=== PATIENT | female | born 1985 | race Caucasian/White ===

== ENCOUNTER 2021-12-13 15:15 | Outpatient (CLI) | payer BC ==
[2021-12-13] MEDS: LACTATED RINGERS 1,000 ML IV SCH ×2 (15:49→16:32)
[2021-12-13 16:09] LABS: Appearance,Urine Clear (Clear); Bacteria,Urine Rare /hpf; Bilirubin,Urine Negative (Negative); Blood,Urine Negative (Negative); Color,Urine Light Yellow; Glucose,Urine (UA) Negative (Negative); Ketones,Urine Negative (Negative); Leukocyte Esterase,Urine Small (Negative); Mucus,Urine Rare /hpf; Nitrite,Urine Negative (Negative); PH, Urine 6.5 (5.0-8.0); Protein,Urine Negative (Negative); RBC,Urine <1 /hpf (0-5); Specific Gravity,Urine 1.011 (1.001-1.035); Squamous Epithelial Cell,Urine 1 /hpf (0-4); Urobilinogen,Urine <2.0 mg/dL (<2.0); WBC,Urine 1 /hpf (0-5)
[2021-12-13 17:30] VITALS: BP 122/67; PULSE 82; RESP 18; TEMP 97.7
--- NOTE | 2022-02-14 21:49 | P.MSEPDOC ---
Presenting Problems - Arrival Data Date of Arrival on Unit: 12/13/21 Time of Arrival on Unit: 15:20 Mode of Transport: Wheelchair - Complaint OB-Reason for Admission/Chief Complaint: Possible Onset of Labor Comment: contractions x1 week, increasing in severity today Medical History - Information : 3 Para: 2 Number of Living Children: 2 - Gestational Age Gestational Age by JG (wks/days): 37 Weeks and 1 Days - History Comment: hx vag delivery x2, both induced Review of Systems - Review of Systems Constitutional: No problems Breast: No problems ENT: No problems Cardiovascular: No problems Respiratory: No problems Gastrointestinal: No problems Genitourinary: No problems Musculoskeletal: No problems Neurological: No problems Skin: No problems Vital Signs - Temperature Temperature: 97.7 F Temperature Source: Temporal Artery Scan - Pulse Right Sitting Brachial Pulse Rate: 82 Pulse Assessment Method: Automatic Cuff - Respirations Respiratory Rate: 18 Oxygen Delivery Method: Room Air O2 Sat by Pulse Oximetry: 98 - Blood Pressure Right Arm Sitting Blood Pressure: 122/67 Blood Pressure Mean: 85 Blood Pressure Source: Automatic Cuff Medical Screen Scoring - Cervical Exam Dilation (cm): 1 Effacement (%): 50 Station: -3 Membranes: Intact - Assessment - Baby A Baseline FHR: 120 Heart Rate - NICHD Category: Category I (Normal) NST: Reactive Physician Notification - Physician Notified Physician Notified Date: 12/13/21 Physician Notified Time: 16:15 Physician: Vickie Leigh New Order Received: Yes - Notification Comment Comment: dc home. Pt to return with continued or increased labor symptoms. Maternal Triage Index - Prompt/Priority 3 Prompt Priority 3: Yes Criteria Met for Priority 3: contractions, no cervical change after 2 hours, reactive NST, + movement Disposition - Disposition OB Disposition: Discharge to home Discharge Date: 12/13/21 Discharge Time: 17:29 I agree with the RN Medical Screening Exam: Yes Case reviewed; plan agreed upon as documented in EMR&OBIX.: Yes Diagnosis: FALSE LABOR AT OR AFTER 37 COMPLETED WEEKS OF GESTATION
== END 2021-12-13 17:30 | disposition home or self-care (01) ==
LOC: FBPOP 15:15
PROVIDERS: ATTEND Obstetrics & Gynecology Obstetrics
DX: O47.1 False labor at or after 37 completed weeks of gestation (principal); Z3A.37 37 weeks gestation of pregnancy; Z91.018 Allergy to other foods; Z88.6 Allergy status to analgesic agent
CPT/HCPCS: 59025; 81001; 96360; 96361; 99213; 99214

== ENCOUNTER → 2021-12-30 | Outpatient (CLI) | payer BC ==
[2021-12-30 06:53] VITALS: BP 130/76; PULSE 69; RESP 18; TEMP 97.7
--- NOTE | 2022-01-05 07:03 | P.MSEPDOC ---
Presenting Problems - Arrival Data Date of Arrival on Unit: 12/30/21 Time of Arrival on Unit: 05:28 Mode of Transport: Ambulatory - Complaint OB-Reason for Admission/Chief Complaint: Possible Onset of Labor Medical History - Information : 3 Para: 2 Term: 2 : 0 Abortions: Spontaneous or Elective: 0 Number of Living Children: 2 - Gestational Age Gestational Age by JG (wks/days): 39 Weeks and 5 Days Review of Systems - Review of Systems Constitutional: No problems Breast: No problems ENT: No problems Cardiovascular: No problems Respiratory: No problems Gastrointestinal: No problems Genitourinary: No problems Musculoskeletal: No problems Neurological: No problems Skin: No problems Vital Signs - Temperature Temperature: 97.7 F Temperature Source: Oral - Pulse Right Pulse Rate: 69 - Respirations Respiratory Rate: 18 Oxygen Delivery Method: Room Air O2 Sat by Pulse Oximetry: 97 - Blood Pressure Right Arm Blood Pressure: 130/76 Blood Pressure Mean: 94 Blood Pressure Source: Automatic Cuff Medical Screen Scoring - Cervical Exam Dilation (cm): 2 Effacement (%): 50 Station: -3 Membranes: Intact - Uterine Contractions Frequency From (mins): 2 Frequency To (mins): 3 Duration From (seconds): 60 Duration To (seconds): 110 Intensity: Strong Resting: Soft to palpation - Assessment - Baby A Baseline FHR: 125 Heart Rate - NICHD Category: Category II (Indeterminate) NST: Reactive Physician Notification - Physician Notified Physician Notified Date: 12/30/21 Physician Notified Time: 06:42 Physician: Edel Villar - Notification Comment Comment: Dr. Villar notified of pt's arrival to triage. RN reported on maternal and status, maternal VS, SVE x2, and FHTs. Pt okay to D/C home at this. time with education to come back when needed. Maternal Triage Index - Maternal Triage Index Presenting for scheduled procedure w/no complaint: No - Stat/Priority 1 Stat Priority 1: No - Urgent/Priority 2 Urgent Priority 2: No - Prompt/Priority 3 Prompt Priority 3: No - Non-Urgent/Priority 4 Non-Urgent Priority 4: Yes Criteria Met for Priority 4: JG 01/02/22 at 39.4 weeks of gestation, here with c/o UC's x 2.5 hours. Disposition - Disposition OB Disposition: Discharge to home Discharge Date: 12/30/21 Discharge Time: 06:55 I agree with the RN Medical Screening Exam: No Physician's MSE Comment: RN reported category one heart tones in report to me. Case reviewed; plan agreed upon as documented in EMR&OBIX.: No Diagnosis: rule out labor
== END ==
LOC: FBPOP 05:28
PROVIDERS: ATTEND Obstetrics & Gynecology
DX: Z03.79 Encounter for other suspected maternal and fetal conditions ruled out (principal); Z91.018 Allergy to other foods; Z88.6 Allergy status to analgesic agent
CPT/HCPCS: 59025; 99213

== ENCOUNTER 2022-01-02 06:00 | Inpatient (IN) | payer BC ==
[2022-01-02] MEDS ORDERED: LIDOCAINE 1% (PF) 10 MG/ML (30 ML SDV) SQ PRN (06:50)
[2022-01-02] MEDS ORDERED: OXYTOCIN 10 UNIT/ML 1 ML VIAL IM PRN (06:50)
[2022-01-02] MEDS ORDERED: TERBUTALINE 1 MG/ML VIAL SQ PRN (06:50)
[2022-01-02] MEDS ORDERED: METHYLERGONOVINE 0.2 MG/ML 1 ML AMP IM PRN (06:50)
[2022-01-02] MEDS ORDERED: CARBOPROST TROMETHAMINE 250 MCG/ML 1 ML AMP IM PRN (06:50)
[2022-01-02] MEDS ORDERED: OXYTOCIN 30 UNITS/500 ML NS 30 UNIT in SALINE 1 500ML.BAG IV SCH ×2 (07:00→17:45)
[2022-01-02 07:05] VITALS: RESP 16
[2022-01-02] MEDS: LACTATED RINGERS 1,000 ML IV SCH ×3 (07:30→12:26)
[2022-01-02 07:45] LABS: Basophils # (A) 0.1 k/uL (0-0.2); Basophils % (A) 0 %; Eosinophils # (A) 0.5 k/uL (0-0.7); Eosinophils % (A) 3 %; HCT 34.5 % (34.0-46.0); HGB 11.4 gm/dL (11.4-16.0); Lymphocytes # (A) 3.4 k/uL (1.0-4.8); Lymphocytes % (A) 23 %; MCH 32.1 pg (25.0-35.0); MCHC 33.2 g/dL (31.0-37.0); MCV 96.8 fL (80.0-100.0); Monocytes # (A) 0.5 k/uL (0-1.0); Monocytes % (A) 4 %; Neutrophils # (A) 10.3 k/uL (1.3-7.7); Neutrophils % (A) 69 %; Platelet Count 353 k/uL (150-450); RBC 3.56 m/uL (3.80-5.40); RDW 12.5 % (11.5-15.5); WBC 14.9 k/uL (3.8-10.6)
[2022-01-02] MEDS ORDERED: BUTORPHANOL 1 MG/ML 1 ML VIAL IV PRN (08:21)
--- NOTE | 2022-01-02 08:26 | P.HPOB ---
History of Present Illness H&P Date: 01/02/22 Chief Complaint: 40-0/7 weeks, induction of labor The patient is a 36-year-old 3 para 2 scissors or 2 admitted at 40-0/7 weeks as established by last menstrual period and confirmed by 9 week ultrasound. She is admitted for induction of labor with all signs reassuring and with a favorable cervix. Her has been uncomplicated. She does fall into the category of advanced maternal age and declined trisomy testing. She also does express a desire for tubal ligation which will likely be carried out at the 6 week amrita. She was a smoker but has reportedly quit during the . On labor and delivery, there is a category 1 h eart rate tracing. Group B strep status is negative. Obstetrical history: 3 para 2001 with 2 term vaginal deliveries without complications. Current statistics are listed in history of present illness. EDC of 01/02/2022 was established by last menstrual period and confirmed by 9 week ultrasound. Laboratory workup demonstrates a blood type of O+ with a negative antibody screen. Rubella status is immune. The remainder of the laboratory workup was within normal limits. One hour Glucola was normal and group B strep status is negative. Gynecologic history: Unremarkable with no history of any infections to include STDs. Review of Systems Review of systems is confined to history of present illness. Past Medical History Past Medical History: No Reported History History of Any Multi-Drug Resistant Organisms: None Reported, MRSA Date of last positivie culture/infection: 07/08/08 MDRO Source:: Unknown Past Surgical History: Appendectomy Additional Past Surgical History / Comment(s): mole removal from (R) leg Past Anesthesia/Blood Transfusion Reactions: No Reported Reaction Past Psychological History: Anxiety, Depression Additional Psychological History / Comment(s): Hx depression. Smoking Status: Never smoker Past Alcohol Use History: None Reported Past Drug Use History: None Reported - Past Family History Father Family Medical History: Hypertension Medications and Allergies Home Medications Medication Instructions Recorded Confirmed Type Vit No.124/Iron/Folic 1 each PO DAILY 07/07/15 01/02/22 History [ Vitamin Tablet] Cetirizine HCl [Zyrtec] 10 mg PO DAILY 12/13/21 01/02/22 History FLUoxetine HCL 40 mg PO DAILY 12/13/21 01/02/22 History Montelukast [Singulair] 1 tab PO DAILY 12/30/21 01/02/22 History Allergies Allergy/AdvReac Type Severity Reaction Status Date / Time banana Allergy Rash/Hives Verified 01/02/22 06:48 peas Allergy Rash/Hives Verified 01/02/22 06:48 tomato Allergy Rash/Hives Verified 01/02/22 06:48 Exam Vital Signs Temp Pulse Resp BP Pulse Ox 01/02/22 06:47 97.7 F 73 16 128/59 98 Intake and Output 01/01/22 01/02/22 01/02/22 22:59 06:59 14:59 Other: Weight 81.647 kg In general, this is a well-developed, well-nourished white female in no acute distress. Her heart has a regular rhythm and rate without murmur. Her lungs clear to auscultation bilaterally in all holcomb. Her abdomen is gravid, nondis tended, has normal active bowel sounds, soft, nontender, and without any palpable masses aside from uterine fundus. Her extremities without any cyanosis, clubbing, or edema and are nontender to palpation bilaterally. Digital cervical examination and straight surgery 3 cm dilated, 50% effaced, the vertex in presentation at -2-3 station. Artificial rupture of membranes is carried out demonstrating lightly meconium-stained fluid. Results Result Diagrams: 01/02/22 06:50 Abnormal Lab Results - Last 24 Hours (Table) 01/02/22 Range/Units 06:50 WBC 14.9 H (3.8-10.6) k/uL RBC 3.56 L (3.80-5.40) m/uL Neutrophils # 10.3 H (1.3-7.7) k/uL Assessment and Plan (1) Term Current Visit: No Status: Acute Code(s): Z34.80 - ENCOUNTER FOR SUPRVSN OF NORMAL , UNSP TRIMESTER SNOMED Code(s): 82065714 Plan: The patient has been admitted for Pitocin augmentation which has been started. She also underwent artificial rupture of membranes. She will have close maternal and surveillance and expectant management will be practiced. She is a good candidate for either IV or epidural analgesia, whichever she may choose.
[2022-01-02] MEDS ORDERED: SODIUM CHLORIDE 0.9% 100 ML BAG ONE (11:20)
[2022-01-02] MEDS ORDERED: fentaNYL (PF) 50 MCG/ML 5 ML AMP ONE (11:20)
[2022-01-02] MEDS ORDERED: ROPIVACAINE 5MG/ML 20ML VIAL ONE (11:20)
[2022-01-02] MEDS ORDERED: HYDROcodone/APAP 5-325MG 1 EACH TAB PO PRN (17:38)
[2022-01-02] MEDS ORDERED: HYDROcodone/APAP 7.5-325MG 1 EACH TAB PO PRN (17:38)
[2022-01-02] MEDS ORDERED: LANOLIN CREAM 5 GM TUBE TOPICAL PRN (17:38)
[2022-01-02] MEDS ORDERED: diphenhydrAMINE 50 MG CAP PO PRN (17:38)
[2022-01-02] MEDS ORDERED: SIMETHICONE 80 MG CHEWABLE PO PRN (17:38)
[2022-01-02] MEDS ORDERED: diphenhydrAMINE 50 MG/ML 1 ML VIAL IVP PRN ×2 (17:38)
[2022-01-02] MEDS ORDERED: BENZOCAINE/MENTHOL SPRAY 1 GM/SPRAY AEROSOL TOPICAL PRN (17:38)
[2022-01-02] MEDS ORDERED: IBUPROFEN 600 MG TAB PO PRN (17:38)
[2022-01-02] MEDS ORDERED: diphenhydrAMINE 25 MG CAP PO PRN (17:38)
[2022-01-02] MEDS ORDERED: ZOLPIDEM 5 MG TAB PO PRN (17:38)
[2022-01-02] MEDS ORDERED: HYDROCORTISONE 2.5% RECTAL CREAM 30 GM TUBE RECTAL PRN (17:38)
--- NOTE | 2022-01-02 17:42 | P.PROBDLV ---
Vaginal Delivery Note - . Vaginal Delivery Note: The patient is a 36-year-old 3 para 2001 admitted at 40-0/7 weeks by good dating parameters. She is admitted for induction of labor with all signs reassuring, category 1 heart rate tracing. Her has been uncomplicated though she did fall into the category of advanced maternal age and declined trisomy testing. Group B strep status was negative. On labor and delivery, Pitocin was started and she underwent artificial rupture of membranes for lightly meconium-stained fluid. She made progress to the active phase of labor and had an epidural catheter placed for analgesia. She then made steady progress through the active phase of labor and ultimately reached complete. She pushed over the course of the next 4 contractions to a normal spontaneous vaginal delivery of a viable 7 lbs. 2 oz. baby boy with Apgars of 6 at 1 minute and 8 at 5 minutes and 9 at 10 minutes. There was a nuchal cord times to which was reduced following delivery of the . The placenta was delivered spontaneously, intact, and grossly normal with a grossly normal, centrally inserted three-vessel cord. There were no lacerations of the perineum, vagina, or cervix. Estimated blood loss for the case is approximately 100 mL. There were no complications. All sponge, instrument, and needle counts were correct. Both mother and infant are resting comfortably in recovery.
[2022-01-02] MEDS: ACETAMINOPHEN TAB 325 MG TAB PO PRN (19:03)
[2022-01-02] MEDS: SENNOSIDES-DOCUSATE SODIUM 1 EACH TAB PO SCH (22:41)
[2022-01-03] MEDS: ACETAMINOPHEN TAB 325 MG TAB PO PRN ×3 (00:17→13:47)
[2022-01-03 07:28] LABS: Basophils % (A) 0 %; Eosinophils # (A) 0.2 k/uL (0-0.7); Eosinophils % (A) 1 %; HCT 32.7 % (34.0-46.0); HGB 10.5 gm/dL (11.4-16.0); Lymphocytes # (A) 2.2 k/uL (1.0-4.8); Lymphocytes % (A) 12 %; MCH 31.4 pg (25.0-35.0); MCHC 32.2 g/dL (31.0-37.0); MCV 97.4 fL (80.0-100.0); Mean Platelet Volume 8.1; Monocytes # (A) 0.5 k/uL (0-1.0); Monocytes % (A) 3 %; Neutrophils # (A) 14.9 k/uL (1.3-7.7); Neutrophils % (A) 83 %; Platelet Count 313 k/uL (150-450); RBC 3.35 m/uL (3.80-5.40); RDW 12.4 % (11.5-15.5); WBC 17.8 k/uL (3.8-10.6)
[2022-01-03] MEDS: SENNOSIDES-DOCUSATE SODIUM 1 EACH TAB PO SCH (07:39)
--- NOTE | 2022-01-03 08:51 | P.DS ---
Providers Date of admission: 01/02/22 06:34 Expected date of discharge: 01/03/22 Attending physician: Cong Dickey Primary care physician: Stated None - Discharge Diagnosis(es) (1) Term Current Visit: Yes Status: Acute (2) Normal spontaneous vaginal delivery Current Visit: Yes Status: Acute Hospital Course: The patient is a 36-year-old 3 para 2001 admitted at 40-0/7 weeks by good dating parameters perches admitted for induction with able cervix. Her was uncomplicated. She did fall into the category of advanced maternal age and declined trisomy testing. On labor and delivery, there was a category 1 heart rate tracing [place] Pitocin started and underwent artificial rupture of membranes for lightly meconium-stained fluid. She had an upper catheter placed her on the onset of the active phase of labor. She made steady progress throughout the day to complete and then pushed fairly quickly to a normal spontaneous vaginal delivery of a viable 7 lbs. 2 oz. baby boy with Apgars of 6 at 1 minute 8 at 5 minutes and 9 at 10 minutes. Her course was unremarkable vital signs being stable and her temperature was afebrile throughout. She was deemed stable for discharge on day #1 was discharged home to follow-up in the office in 6 weeks' time routinely. Discharge instructions included calling for any significantly increased bleeding or foul-smelling lochia, significantly increased fever or abdominal pain, perineal complaints, breast complaints, or anything else that concerned her. She was additionally instructed to have nothing in the vagina for at least 6 weeks time to include intercourse. She does intend to have a tubal ligation and will likely return to the office at 5-6 weeks to schedule the procedure. Maternal blood type is O+ and rubella status is immune. Procedures: #1. Pitocin induction #2. Epidural analgesia #3. Normal spontaneous vaginal delivery Patient Condition at Discharge: Stable Plan - Discharge Summary Discharge Rx Participant: No New Discharge Prescriptions: No Action Vit No.124/Iron/Folic [ Vitamin Tablet] 1 each PO DAILY FLUoxetine HCL 40 mg PO DAILY Montelukast [Singulair] 1 tab PO DAILY Cetirizine HCl [Zyrtec] 10 mg PO DAILY Discharge Medication List Vit No.124/Iron/Folic [ Vitamin Tablet] 1 each PO DAILY 07/07/15 [History] Cetirizine HCl [Zyrtec] 10 mg PO DAILY 12/13/21 [History] FLUoxetine HCL 40 mg PO DAILY 12/13/21 [History] Montelukast [Singulair] 1 tab PO DAILY 12/30/21 [History] Follow up Appointment(s)/Referral(s): Cong Dickey MD [STAFF PHYSICIAN] - 6 Weeks Discharge Disposition: HOME SELF-CARE
[2022-01-03 16:44] VITALS: BP 117/66; PULSE 75; TEMP 98.3
== END 2022-01-03 18:05 | disposition home or self-care (01) | DRG 807 ==
LOC: 4FBP 06:34
PROVIDERS: ADMIT Obstetrics & Gynecology; ATTEND Obstetrics & Gynecology
PROC: 10E0XZZ Delivery of Products of Conception, External Approach (ICD-10-PCS; principal; 2022-01-02)
PROC: 3E0R3NZ Introduction of Analgesics, Hypnotics, Sedatives into Spinal Canal, Percutaneous Approach (ICD-10-PCS; 2022-01-02)
PROC: 3E033VJ Introduction of Other Hormone into Peripheral Vein, Percutaneous Approach (ICD-10-PCS; 2022-01-02)
PROC: 10907ZC Drainage of Amniotic Fluid, Therapeutic from Products of Conception, Via Natural or Artificial Opening (ICD-10-PCS; 2022-01-02)
PROC: 00HU33Z Insertion of Infusion Device into Spinal Canal, Percutaneous Approach (ICD-10-PCS; 2022-01-02)
DX: O77.0 Labor and delivery complicated by meconium in amniotic fluid (principal); Z37.0 Single live birth; O99.344 Other mental disorders complicating childbirth; F32.A Depression, unspecified; F41.9 Anxiety disorder, unspecified; Z3A.40 40 weeks gestation of pregnancy; Z79.899 Other long term (current) drug therapy; Z87.891 Personal history of nicotine dependence; Z86.14 Personal history of Methicillin resistant Staphylococcus aureus infection; Z87.2 Personal history of diseases of the skin and subcutaneous tissue; Z91.018 Allergy to other foods; Z82.49 Family history of ischemic heart disease and other diseases of the circulatory system
CPT/HCPCS: 85025; 86850; 86900; 86901

== ENCOUNTER → 2022-03-19 | Outpatient (CLI) | payer BC ==
[2022-03-19 18:26] LABS: Basophils # (A) 0.02 X 10*3/uL (0.00-0.10); Basophils % (A) 0.2 %; Eosinophils # (A) 0.28 X 10*3/uL (0.04-0.35); Eosinophils % (A) 2.8 %; HCT 39.9 % (37.2-46.3); HGB 12.9 g/dL (12.0-15.0); Immature Grans, Automated 0.4 %; Lymphocytes # (A) 3.39 X 10*3/uL (0.90-5.00); Lymphocytes % (A) 33.5 %; MCH 30.6 pg (27.0-32.0); MCHC 32.3 g/dL (32.0-37.0); MCV 94.8 fL (80.0-97.0); Mean Platelet Volume 10.8 fL (9.5-12.2); Monocytes # (A) 0.61 X 10*3/uL (0.20-1.00); NRBC Per 100 WBC 0 /100 WBCS (0.0-0.0); Neutrophils # (A) 5.77 X 10*3/uL (1.80-7.70); Neutrophils % (A) 57.1 %; Platelet Count 325 X 10*3/uL (140-440); RBC 4.21 X 10*6/uL (4.10-5.20); RDW 13.8 % (11.5-14.5); WBC 10.11 X 10*3/uL (4.50-10.00)
== END | disposition home or self-care (01) ==
LOC: LABPAT 12:24
PROVIDERS: ATTEND Obstetrics & Gynecology
DX: Z30.2 Encounter for sterilization (principal)
CPT/HCPCS: 85025

== ENCOUNTER 2022-03-26 08:37 | Day surgery (SDC) | payer BC ==
--- NOTE | 2022-03-22 14:43 | HP ---
HISTORY AND PHYSICAL DATE OF DICTATION: 03/22/2022 DATE OF SURGERY: 03/26/2022 HISTORY OF PRESENT ILLNESS: The patient is a 36-year-old 3, para 3-0-0-3, who presented to the office for examination and has requested permanent sterilization with laparoscopic bilateral tubal occlusion using Filshie clips. She is aware of all reversible methods and has declined these. PAST MEDICAL HISTORY: Significant for periods with anxiety and depression. She has been told empirically that she has a heart murmur but requires no treatment. PAST SURGICAL HISTORY: Significant for an appendectomy in 2010. She had diagnostic laparoscopy in 2005 and has had no anesthetic concerns reportedly. OBSTETRICAL HISTORY: 3, para 3-0-0-3, with three term vaginal deliveries without complications. She is and is remaining abstinent until tubal ligation can be completed. GYNECOLOGIC HISTORY: Unremarkable with no history of any infections to include STDs. FAMILY HISTORY: Noncontributory. SOCIAL HISTORY: The patient is single but has a significant other. She is a hvh-veny-gpg-day smoker historically. She denies any other significant social concerns. CURRENT MEDICATIONS: Current medications include cetirizine 10 mg, vitamin daily, Prozac 40 mg daily and Singulair 10 mg daily. ALLERGIES: PRIMARILY ENVIRONMENTAL WITH NO KNOWN DRUG ALLERGIES. REVIEW OF SYSTEMS: Confined to history of present illness. PHYSICAL EXAMINATION: Vital signs are stable. The patient is afebrile. In general this is a well-developed, well-nourished white female in no acute distress. Her heart has a regular rhythm and rate without murmur. Her lungs are clear to auscultation bilaterally in all holcomb. Her abdomen is nondistended, has normoactive bowel sounds, is soft, nontender, and without any palpable masses, hepatosplenomegaly or hernias. Her extremities are without any cyanosis, clubbing or edema and are nontender to palpation bilaterally. Bimanual pelvic examination demonstrates normal external genitalia and BUS with normal vaginal mucosa and cervix to palpation. There is no cervical motion tenderness. The uterus is approximately 5 weeks in size, retroverted, mobile, nontender, and normal in shape. The adnexa are normal and nontender without mass bilaterally. ASSESSMENT AND PLAN: Multiparity, undesired fertility. The patient has requested permanent sterilization with laparoscopic bilateral tubal occlusion using Filshie clips. The risks and complications of the procedure have been thoroughly discussed, including the risk for bleeding, bleeding requiring transfusion, infection, and injury to local structures to specifically include the bowel, bladder and ureters. She has understood all of this and has agreed to proceed. She does understand the permanent nature of the procedure as well as the potential failure rate. [place] / [place]: [id number] /
[2022-03-23 10:21] VITALS: BMI 26.1
[~2022-03-26 08:37] MED LIST: DEXAMETHASONE SOD PHOSPHATE 4 MG/ML 1 ML VIAL IV ONE; LACTATED RINGERS 1,000 ML IV SCH; LIDOCAINE 1% (10MG/ML) FOR IV START INTRADERMA PRN; ONDANSETRON 4 MG/2 ML VIAL IVP ONE; Pre Op ABX Message 1 EACH MISC MISCELLANE ONE; SCOPOLAMINE 1 MG/72 HR PATCH TRANSDERM ONE
[2022-03-26] MEDS ORDERED: PROPOFOL 10 MG/ML 20 ML VIAL IV ONE (11:01)
[2022-03-26] MEDS ORDERED: SUCCINYLCHOLINE CHLORIDE 100 MG/5 ML SYR IV ONE (11:01)
[2022-03-26] MEDS ORDERED: GLYCOPYRROLATE 0.2 MG/ML 2 ML VIAL ONE (11:01)
[2022-03-26] MEDS ORDERED: fentaNYL (PF) 50 MCG/ML 2 ML AMP ONE (11:01)
[2022-03-26] MEDS ORDERED: LIDOCAINE 2% INJ 20 MG/ML (2 ML VIAL) ONE (11:01)
[2022-03-26] MEDS ORDERED: MIDAZOLAM 2 MG/2 ML VIAL ONE (11:01)
[2022-03-26] MEDS ORDERED: ePHEDrine 50 MG/ML 1 ML VIAL ONE (11:01)
[2022-03-26] MEDS ORDERED: ACETAMINOPHEN IV (For NPO) 1,000 MG/100 ML VIAL ONE (11:01)
[2022-03-26] MEDS ORDERED: BUPIVACAINE (PF) 0.5% 30 ML VIAL SQ ONE ×2 (11:24→11:31)
[2022-03-26] MEDS ORDERED: METOCLOPRAMIDE 5 MG/ML 2 ML VIAL IVP PRN (11:37)
[2022-03-26] MEDS ORDERED: ONDANSETRON 4 MG/2 ML VIAL IVP PRN (11:37)
[2022-03-26] MEDS ORDERED: SIMETHICONE 80 MG CHEWABLE PO PRN (11:37)
[2022-03-26] MEDS ORDERED: Acetaminophen-Codeine 300-30mg TAB PO PRN ×2 (11:37)
--- NOTE | 2022-03-26 11:43 | P.OP ---
Date of Procedure: 03/26/22 Preoperative Diagnosis: #1. Multiparity #2. Undesired fertility Postoperative Diagnosis: Same Procedure(s) Performed: #1. Laparoscopic bilateral tubal occlusion with Filshie clips Anesthesia: KRISTIN Surgeon: Cong Dickey Estimated Blood Loss (ml): 5 IV fluids (ml): 300 Urine output (ml): 30 Pathology: none sent Condition: stable Disposition: PACU Operative Findings: Gravid pelvic examination demonstrated a 5 week retroverted mobile normal shaped uterus with normal adnexa bilaterally. Intraoperatively, these findings were confirmed with entirely normal findings in the pelvis to include the uterus, tubes, and ovaries. There was no evidence of pathology to include endometriosis. There was evidence of probable previous appendectomy. The upper abdomen was normal with a normal liver and diaphragm. A Filshie clip was placed firmly across the fallopian tube in the isthmic portion on each side. Description of Procedure: The patient was prepped and draped in usual fashion after general endotracheal anesthesia was administered by the anesthesiologist. A speculum was placed in the anterior lip of the cervix grasped with a single-tooth tenaculum. An acorn cannula was placed for manipulation intraoperatively. The speculum was removed and the bladder was drained of approximately 30 mL of clear rajat urine. Attention was then turned to the abdomen where a 5 mm incision was made in the p re-existing scar and a semilunar fashion within the umbilicus. A 5 mm optical trocar was placed under direct visualization without difficulty. A pneumoperitoneum was instilled and Trendelenburg positioning utilized. A site was selected in the midline approximately 4-5 cm above the pubic symphysis where an 8 mm incision was made in the transverse plane allowing insertion of an 8 mm trocar under direct visualization without difficulty. The blunt probe was utilized to sweep the bowel from the pelvis. The findings are as noted above with entirely normal findings. There was no evidence pathology to include endometriosis. The probe was replaced with a Filshie clip applicator which was utilized to place a Filshie clip across the isthmic portion of fallopian tube approximately 2-3 cm from the cornu of the uterus on the right side. A similar operation was carried out on the left side without difficulty. Examination of the upper abdomen demonstrated some mild scarring in the cecal region likely from her previous appendectomy. The upper abdomen was entirely normal. All instrumentation was then removed and the pneumoperitoneum evacuated through the 2 incisions and the trochars removed. The skin was reapproximated with interrupted subcuticular stitches of 4-0 Vicryl followed by half-inch Steri- Strips placed with Mastisol. The 2 incisions were infused with a total of 10 mL of half percent Marcaine without epinephrine equally divided between the 2 incisions. The vaginal incision mentation was removed. Estimated blood loss for the case was less than 5 mL. There are no complications. All sponge, instrument, needle counts were correct. The patient tolerated the procedure well and proceeded to the recovery room in stable condition.
[2022-03-26] MEDS ORDERED: LACTATED RINGERS 1,000 ML IV SCH (11:45)
[2022-03-26 11:49] VITALS: TEMP 97
[2022-03-26] MEDS: HYDROmorphone 0.5 MG/0.5 ML SYRINGE IVP PRN ×2 (12:22→13:27)
[2022-03-26 13:49] VITALS: RESP 18
[2022-03-26] MEDS ORDERED: oxyCODONE-APAP 5-325MG 1 EACH TAB PO STA (14:02)
[2022-03-26 14:07] VITALS: BP 126/77; PULSE 88
== END 2022-03-26 15:18 | disposition home or self-care (01) ==
LOC: OR 08:37
PROVIDERS: ATTEND Obstetrics & Gynecology
DX: Z30.2 Encounter for sterilization (principal); Z64.1 Problems related to multiparity; F17.200 Nicotine dependence, unspecified, uncomplicated; F32.A Depression, unspecified; F41.9 Anxiety disorder, unspecified; Z79.899 Other long term (current) drug therapy
CPT/HCPCS: 58671; 81025; J2250; J1100; J2405; J3010; J0131; J0330; J2704; J1170; J2001